=== PATIENT | female | born 1990 | race Caucasian/White ===

== ENCOUNTER → 2021-10-09 15:36 | Outpatient (CLI) | payer OTHER, SELFPAY ==
--- NOTE | 2021-10-09 15:44 | DI.US.S_ITS ---
PROCEDURE: US PELVIC COMPLETE INDICATIONS: LEFT LOWER QUADRANT PAIN AROUND MENSES TECHNIQUE: Real-time scanning was performed of the pelvic organs, with image documentation. Additional endovaginal scanning was necessary due to incomplete visualization of the adnexal and endometrial structures by transabdominal scanning. COMPARISON: None. FINDINGS: Uterus: Uterus is anteverted and normal in size at 7.2 x 3.6 x 2.5 cm. The myometrium is homogeneous. No discrete uterine fibroid is seen. The endometrium measures 1.1 mm combined thickness. 3 x 4 x 3 mm hyperechoic and solid appearing nodule is noted involving anterior endometrium with peripheral vascularity. No other endometrial mass or fluid is seen. Small nabothian cysts are noted in endocervical canal. Ill-defined hypoechoic and mildly heterogeneous structure is seen in anterior inferior vaginal canal and measures 2 x 1 x 1 cm in size. No internal vascularity is seen. Ovaries: The right ovary measures 3.3 x 2.2 x 1.0 cm. The left ovary measures 2.2 x 1.9 x 1.5 cm. The ovaries have a normal sonographic appearance. No adnexal masses are seen. Other: No pathologic free abdominal or pelvic fluid. IMPRESSION: 1. Tiny 3 x 4 x 3 mm hyperechoic nodule in anterior endometrium with peripheral vascularity which may represent endometrial polyp, suggest [facility] correlation. 2. Ill-defined hypoechoic and mildly heterogeneous lesion involving anterior inferior vaginal canal and measures 2 x 1 x 1 cm in size without internal vascularity, suggest [facility] correlation. 3. No gross abnormality is seen in bilateral ovaries. We strive to produce accurate, complete, and clear reports of imaging services. To assist us in improving patient care, this report was composed using standard report templates and voice recognition software. Therefore, it may contain abnormal punctuation, insertions and/or omissions. Occasional wrong-word or sound-alike substitutions may occur. Though we review the report and make efforts to correct it, we do recommend that the report be read carefully in proper context to recognize any text inaccuracies. Dictated by: Roberto Carlos De Anda M.D. on 10/09/2021 at 16:21 Approved by: Roberto Carlos De Anda M.D. on 10/09/2021 at 16:25
[2021-10-10 04:36] LABS: HSV 2 IGG AB < 0.91 index (0.00-0.90)
[2021-10-11 22:19] LABS: HSV, IgM I/II Combination <0.91 Ratio (0.00-0.90)
== END ==
PROVIDERS: PCP Nurse Practitioner; Referring Provider Nurse Practitioner; Visit Provider Nurse Practitioner
DX: B00.9 Herpesviral infection, unspecified (principal); R10.32 Left lower quadrant pain; N94.6 Dysmenorrhea, unspecified
CPT/HCPCS: 36415; 76830; 76856; 86695; 86696